=== PATIENT | male | born 1980 | race Caucasian/White ===

== ENCOUNTER 2019-12-24 11:29 | Emergency (ER) | payer OTHER ==
[~2019-12-24] VITALS: Ht 175.3 cm; Wt 78.0 kg
--- NOTE | 2019-12-24 12:20 | RAD ---
Examination: CHEST AP ONLY History: Shortness of breath, cough Comparison: None. Findings: AP portable upright frontal view of the chest was obtained. The cardiomediastinal silhouette is normal. Subtle right upper lung field nodular infiltrate measuring up to 0.8 cm diameter as questioned. There is no pneumothorax. No pleural effusion is appreciated. No acute bone abnormality. IMPRESSION: Subtle right upper lung field nodule or infiltrate. Interval follow-up chest x-ray 2 view exam in 6-8 weeks to assess for resolution is recommended if stability is unknown. Electronically signed by: Jose Manuel Soriano MD (12/24/2019 12:17 PM) [id number]
--- NOTE | 2019-12-24 12:23 | PHYS DOC ---
Past History Past Medical History: Hypertension, Seizure Past Surgical History: No Surgical History Alcohol Use: None General Adult EDM: Chief Complaint: SHORTNESS OF BREATH HPI: HPI: Patient is a 39-year-old male who was just released from senior care today, [facility] and [facility] would not accept him because he was recently tested positive for COVID-19. Patient had not been feeling well with trouble breathing and cough for about a week. Patient denies any chest pain, no abdominal pain. Patient is not a smoker, he has no history of heart problem. Patient has history of hypertension and seizure disorder. Review of Systems: Review of Systems: Constitutional: Denies fever or chills Eyes: Denies change in visual acuity HENT: Denies nasal congestion or sore throat Respiratory: Positive for cough and trouble breathing Cardiovascular: Denies chest pain or edema GI: Denies abdominal pain, nausea, vomiting, bloody stools or diarrhea : Denies dysuria Musculoskeletal: Denies back pain or joint pain Integument: Denies rash Neurologic: Denies headache, focal weakness or sensory changes Endocrine: Denies polyuria or polydipsia Lymphatic: Denies swollen glands Psychiatric: Denies depression or anxiety Heart Score: Risk Factors: Risk Factors: DM, Current or recent (<one month) smoker, HTN, HLP, family history of CAD, obesity. Risk Scores: Score 0 - 3: 2.5% MACE over next 6 weeks - Discharge Home Score 4 - 6: 20.3% MACE over next 6 weeks - Admit for Clinical Observation Score 7 - 10: 72.7% MACE over next 6 weeks - Early Invasive Strategies Allergies: Allergies: Allergies Coded Allergies Type Severity Reaction Last Updated Verified No Known Drug Allergies 12/24/19 No Physical Exam: PE: Constitutional: Well developed, well nourished, no acute distress, non-toxic appearance. [] HENT: Normocephalic, atraumatic, bilateral external ears normal, oropharynx moist, no oral exudates, nose normal. [] Eyes: PERRLA, EOMI, conjunctiva normal, no discharge. [] Neck: Normal range of motion, no tenderness, supple, no stridor. [] Cardiovascular:Heart rate regular rhythm, no murmur [] Lungs & Thorax: Bilateral breath sounds clear to auscultation [] Abdomen: Bowel sounds normal, soft, no tenderness, no masses, no pulsatile masses. [] Skin: Warm, dry, no erythema, no rash. [] Back: No tenderness, no CVA tenderness. [] Extremities: No tenderness, no cyanosis, no clubbing, ROM intact, no edema. [] Neurologic: Alert and oriented X 3, normal motor function, normal sensory function, no focal deficits noted. [] Psychologic: Affect normal, judgement normal, mood normal. [] Current Patient Data: Vital Signs: Vital Signs Date Time Temp Pulse Resp B/P (MAP) Pulse Ox O2 Delivery O2 Flow Rate FiO2 12/24/19 11:30 98.1 106 22 128/80 (96 95 Nasal Cannula EKG: EKG: EKG was done at 1223, heart rate was 96 bpm , no STEMI. Radiology/Procedures: Radiology/Procedures: [][place] [address] IMAGING REPORT Signed PATIENT: FLY GRAMAJO ACCOUNT: [id number] : 1980 LOCATION: ER AGE: 39 SEX: M EXAM STATUS: PRE ER ORD. PHYSICIAN: REECE COATS DO REASON: soa, cough PROCEDURE: CHEST AP ONLY Examination: CHEST AP ONLY History: Shortness of breath, cough Comparison: None. Findings: AP portable upright frontal view of the chest was obtained. The cardiomediastinal silhouette is normal. Subtle right upper lung field nodular infiltrate measuring up to 0.8 cm diameter as questioned. There is no pneumothorax. No pleural effusion is appreciated. No acute bone abnormality. IMPRESSION: Subtle right upper lung field nodule or infiltrate. Interval follow-up chest x-ray 2 view exam in 6-8 weeks to assess for resolution is recommended if stability is unknown. Electronically signed by: Alannah Finn MD (12/24/2019 12:17 PM) [id number] DICTATED AND SIGNED BY: ALANNAH FINN MD DATE: 12/24/19 1217 CC: REECE COATS DO ~ Course & Med Decision Making: Course & Med Decision Making Pertinent Labs and Imaging studies reviewed. (See chart for details) Patient is a 39-year-old man non-smoker who was recentlY tested positive for COVID-19, patient was just released from senior care today, he could not find a homeless [facility] to stay, patient vital signs stable here, he had pneumonia on chest x-ray, patient will be discharged home. Patient said he has found a drive to [facility] [place] in [place]. THE FOLLOWING ADVICE WAS GIVEN: As you have symptoms, you should stay at home for at least 7 days. Notify a healthcare professional if you develop further symptoms that include chest pain, arrhythmias/palpitations, prolonged SOB or fever, or other concerning symptoms. If you live with other people, they should stay at home for at least 14 days, to avoid spreading the infection outside the home. After 14 days, anyone you live with who does not have symptoms can return to their normal routine. But, if anyone in your home gets symptoms, they should stay at home for 7 days from the day their symptoms start. Even if it means they're at home for longer than 14 days. OTHER INFORMATION: If you live with someone who is 70 or over, has a long-term illness, is or has a weakened immune system, try to find somewhere else for them to stay for 14 days. If you have to stay at home together, try to keep away from each other as much as possible. Dragon Disclaimer: Splore Disclaimer: This electronic medical record was generated, in whole or in part, using a voice recognition dictation system. Departure Departure: Impression: Primary Impression: Pneumonia Additional Impression: COVID-19 virus infection Disposition: 01 HOME, SELF-CARE Condition: STABLE Patient Instructions: Pneumonia, Adult Additional Instructions: Thank you for visiting our Emergency Department. We appreciate you trusting us with your care. If any additional problems come up don't hesitate to return to visit us. Please follow up with your primary care provider so they can plan additional care if needed and know about the problem that you had. If symptoms worsen come back to the Emergency Department. Any concerning symptoms that start such as chest pain, shortness of air, weakness or numbness on one side of the body, running high fevers or any other concerning symptoms return to the ER. Thank you for visiting [facility]. We appreciate you trusting us with your care. If any additional problems come up please don't hesitate to return to visit us. Follow up with your primary care provider so they can plan additional care if needed and know about the problem that you had today. If symptoms worsen come back to the Emergency Department. Any concerning symptoms that start such as chest pain, shortness of air, weakness or numbness on one side of the body, running high fevers or any other concerning symptoms return to the ER. THE FOLLOWING ADVICE WAS GIVEN: As you have symptoms, you should stay at home for at least 7 days. Notify a healthcare professional if you develop further symptoms that include chest pain, arrhythmias/palpitations, prolonged SOB or fever, or other concerning symptoms. If you live with other people, they should stay at home for at least 14 days, to avoid spreading the infection outside the home. After 14 days, anyone you live with who does not have symptoms can return to their normal routine. But, if anyone in your home gets symptoms, they should stay at home for 7 days from the day their symptoms start. Even if it means they're at home for longer than 14 days. OTHER INFORMATION: If you live with someone who is 70 or over, has a long-term illness, is or has a weakened immune system, try to find somewhere else for them to stay for 14 days. If you have to stay at home together, try to keep away from each other as much as possible. Scripts Cefdinir (CEFDINIR) 300 Mg Capsule 1 CAP PO BID for PNEUMONIA, #20 CAP Prov: REECE COATS DO 12/24/19 Azithromycin (ZITHROMAX) 250 Mg Tablet 1 PKG PO UD for PNEUMONIA, #6 TAB Prov: REECE COATS DO 12/24/19 REECE COATS DO December 24, 2019 12:22
[2019-12-24 12:41] LABS: BASO % 0 % (0-3); EOS # 0.1 x10^3/uL (0.0-0.7); EOS % 2 % (0-3); HEMATOCRIT 42.3 % (39.0-53.0); HEMOGLOBIN 14.4 g/dL (13.0-17.5); LYMPH # 2.1 x10^3/uL (1.0-4.8); LYMPH % 22 % (24-48); MEAN CORPUSCULAR HEMOGLOBIN 29 pg (25-35); MEAN CORPUSCULAR HGB CONC 34 g/dL (31-37); MEAN CORPUSCULAR VOLUME 87 fL (79-100); MONO # 0.6 x10^3/uL (0.0-1.1); MONO % 6 % (0-9); NEUT # 6.5 x10^3uL (1.8-7.7); NEUT % 70 % (31-73); PLATELET COUNT 385 x10^3/uL (140-400); RED BLOOD COUNT 4.89 x10^6/uL (4.30-5.70); RED CELL DISTRIBUTION WIDTH 15.9 % (11.5-14.5); WHITE BLOOD COUNT 9.4 x10^3/uL (4.0-11.0)
[2019-12-24 12:46] LABS: ANION GAP 13 (6-14); BLOOD UREA NITROGEN 23 mg/dL (8-26); BUN/CREATININE RATIO 18 (6-20); CALCIUM 9.4 mg/dL (8.5-10.1); CARBON DIOXIDE 27 mmol/L (21-32); CHLORIDE 103 mmol/L (98-107); CREATININE 1.3 mg/dL (0.7-1.3); GFR 60.8; GLUCOSE 136 mg/dL (70-99); POTASSIUM 4.4 mmol/L (3.5-5.1); SODIUM 143 mmol/L (136-145)
[2019-12-24 12:53] LABS: ALBUMIN 3.9 g/dL (3.4-5.0); ALK PHOS 94 U/L (46-116); ALT (SGPT) 65 U/L (16-63); AST (SGOT) 34 U/L (15-37); TOTAL BILIRUBIN 0.2 mg/dL (0.2-1.0); TOTAL PROTEIN 7.8 g/dL (6.4-8.2)
[2019-12-24] MEDS ORDERED: AZITHROMYCIN 250 MG TABLET. PO ONE (13:45)
[2019-12-24] MEDS ORDERED: IV NORMAL SALINE 50ML 50 ML ONE (14:18)
[2019-12-24] MEDS ORDERED: cefTRIAXone SODIUM 1 GM VIAL ONE (14:19)
[2019-12-24] MEDS ORDERED: IV NORMAL SALINE 1,000ML 1,000 ML IV ONE (14:30)
[2019-12-24] MEDS ORDERED: AZIT250T PO (15:26)
[2019-12-24] MEDS ORDERED: CEFD300C PO (15:26)
[2019-12-24 15:36] VITALS: BP 121/85
--- NOTE | 2019-12-24 16:42 | EKG ---
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
== END 2019-12-24 15:45 | disposition home or self-care (01) ==
LOC: ER 11:29
DX: U07.1 COVID-19 (principal); J12.89 Other viral pneumonia; Z59.0 Homelessness; I10 Essential (primary) hypertension
CPT/HCPCS: 36415; 71045; 80053; 80164; 82550; 84484; 85025; 85610; 85730; 93005; 96365; 99285; J0456; J0696; J7030